=== PATIENT | female | born 1995 | race Two or more races ===

== ENCOUNTER 2022-05-02 18:10 | Emergency (ER) | payer BC ==
[~2022-05-02] VITALS: Ht 154.9 cm; Wt 87.5 kg
[2022-05-02] MEDS ORDERED: PROAIR HFA8.5 GM IH (21:59)
[2022-05-02] MEDS ORDERED: ZITHROMAX500 MG PO (21:59)
[2022-05-02] MEDS ORDERED: BENZONATATE200 M1 PO (21:59)
== END 2022-05-02 22:11 | disposition home or self-care (01) ==
LOC: ER 18:10
DX: J06.9 Acute upper respiratory infection, unspecified (principal)